=== PATIENT | female | born 1955 | race American Indian/Alaskan Native ===

== ENCOUNTER 2021-03-06 13:42 | Emergency (ER) | payer OTHER ==
[2021-03-06 14:56] VITALS: BP 152/80
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
== END 2021-03-06 23:15 | disposition home or self-care (01) ==
LOC: ED 13:42
DX: S16.1XXA Strain of muscle, fascia and tendon at neck level, initial encounter (principal); R51.9 Headache, unspecified; I10 Essential (primary) hypertension; R07.89 Other chest pain; R10.31 Right lower quadrant pain; R10.11 Right upper quadrant pain; M25.511 Pain in right shoulder; V87.7XXA Person injured in collision between other specified motor vehicles (traffic), initial encounter; Y93.89 Activity, other specified; Y92.488 Other paved roadways as the place of occurrence of the external cause; Y99.8 Other external cause status
CPT/HCPCS: 70450; 71046; 72125; 99284